=== PATIENT | female | born 1940 | race Caucasian/White ===

== ENCOUNTER 2017-01-01 13:22 | Outpatient (CLI) | payer MEDICARE, OTHER | END 2017-01-01 13:23 | LOC: RT 13:22 | PROVIDERS: ATTEND Physician Assistant | DX: Z53.9 Procedure and treatment not carried out, unspecified reason (principal) ==

== ENCOUNTER 2017-09-22 15:30 | Outpatient (CLI) | payer MEDICARE, OTHER ==
--- NOTE | 2017-09-22 15:59 | Diagnostic Imaging Report ---
JOSE R MCCAIN [facility] [id number] [facility] [address] [address] Report Submission Date: Sep 22, 2017 3:58:03 PM SCALE RECLAMATION TENDER Patient Study Name: KACI SEAMAN Date: Sep 22, 2017 3:37:12 PM SCALE RECLAMATION TENDER Modality Type: CR Gender: F Description: ABDOMEN : 42 Institution: [facility] Physician: JOSE R MCCAIN Examination: Obstruction series History: PT STATES LLQ ABD PAIN X 3 DAYS (Hx) / LLQ PAIN (DICOM Hx) / LLQ PAIN ( Pt comments) Findings: 4 views obtained of the abdomen. No abnormal dilation of the large or small bowel. Air and stool throughout the large bowel. No suspicious calcification projecting over the renal fossa or the lower pelvic region. Pelvic phleboliths. Surgical clips right upper quadrant. Degenerative spurring of the osseous structures. Impression: No obstruction. No suspicious calcifications by plain film sensitivity. Electronically signed on Sep 22, 2017 3:58:03 PM SCALE RECLAMATION TENDER by: Marco A NOVOA
== END 2017-09-22 15:32 ==
LOC: RAD 15:30
PROVIDERS: ATTEND Physician Assistant
DX: R10.32 Left lower quadrant pain (principal)
CPT/HCPCS: 74020